=== PATIENT | female | born 1940 | race Caucasian/White ===

== ENCOUNTER 2019-08-15 14:27 | Outpatient (CLI) | payer MEDICARE, SELFPAY ==
--- NOTE | 2019-08-15 14:42 | XRR_ITS ---
PROCEDURE INFORMATION: Exam: XR Right Shoulder Exam date and time: 08/15/2019 2:50 PM Age: 78 years old Clinical indication: Pain; Shoulder; Right; Additional info: Chronic right shoulder pain TECHNIQUE: Imaging protocol: XR Right shoulder. Views: 2 or more views. COMPARISON: No relevant prior studies available. FINDINGS: Bones/joints: Normal. No fracture or dislocation evident. Soft tissues: Normal. XR/XR shoulder RT min 2V* [id number] IMPRESSION: No acute findings.
== END 2019-08-15 14:28 | disposition home or self-care (01) ==
LOC: RAD 14:34
PROVIDERS: PCP Family Medicine; Visit Provider Family Medicine
DX: M25.511 Pain in right shoulder (principal); G89.29 Other chronic pain
CPT/HCPCS: 73030

== ENCOUNTER 2020-06-23 12:54 | Outpatient (CLI) | payer MEDICARE, SELFPAY ==
--- NOTE | 2020-06-23 12:59 | US_ITS ---
WS: [id number] Complete ABDOMINAL ULTRASOUND HISTORY: Abdominal PAIN COMPARISON: 08/04/2011 Liver: 13.8 cm in length. Entire liver is not well seen due to body habitus and attenuation. There do es appear to be mild hepatic steatosis. Gallbladder: Normally distended with no gallstones, wall thickening or pericholecystic fluid. Gallbladder wall thickness: 0.3 cm. Pancreas: Poorly visualized. CBD: 0.3 cm. Right kidney: 8.7 cm x 4.6 cm x 4.1 cm. No mass, cortical thickening or hydronephrosis. Left kidney: 9.6 cm x 3.9 cm x 4.0 cm. No mass, cortical thickening or hydronephrosis. Spleen: Normal size and echogenicity. Abdominal aorta and IVC are within normal limits. No ascites. US/US abdomen complete* [id number] IMPRESSION: 1. Mild limitations due to body habitus. 2. Negative gallbladder. 3. Mild hepatic steatosis.
== END 2020-06-23 12:55 | disposition home or self-care (01) ==
PROVIDERS: PCP Family Medicine; Visit Provider Family Medicine
DX: R10.12 Left upper quadrant pain (principal); K76.0 Fatty (change of) liver, not elsewhere classified
CPT/HCPCS: 76700

== ENCOUNTER 2020-10-14 15:01 | Outpatient (CLI) | payer MEDICARE, SELFPAY ==
--- NOTE | 2020-10-14 15:13 | XRR_ITS ---
PROCEDURE INFORMATION: Exam: XR Right Hip Exam date and time: 10/14/2020 3:13 PM Age: 80 years old Clinical indication: Hip pain; Right hip; Additional info: Acute R hip pain TECHNIQUE: Imaging protocol: XR Right hip. Views: 1 view hip with pelvis when performed. COMPARISON: MRI Lumbar Spine w/o [id number] 01/17/2019 11:15 AM FINDINGS: Bones/joints: Mild degenerative narrowing of both hips. No significant marginal osteophyte formation or subchondral sclerotic/cystic change. No evidence of fracture. Soft tissues: Unremarkable. XR/XR hip RT 2-3V wo/w pel* [id number] IMPRESSION: 1. No acute findings. 2. Mild DJD of the hips.
== END 2020-10-14 15:02 | disposition home or self-care (01) ==
LOC: RAD 15:07
PROVIDERS: PCP Family Medicine; Visit Provider Registered Nurse
DX: M16.0 Bilateral primary osteoarthritis of hip (principal)
CPT/HCPCS: 73502

== ENCOUNTER 2021-10-06 11:26 | Outpatient (CLI) | payer MEDICARE, SELFPAY ==
--- NOTE | 2021-10-06 11:46 | US_ITS ---
WS: [id number] Complete ABDOMINAL ULTRASOUND HISTORY: LUQ ABDOMINAL PAIN COMPARISON: 06/23/2020 Liver: 13.1 cm in length. Normal size liver. 1.2 cm cyst LEFT lobe of the liver. No solid mass or consuelo t dilatation. Portal Vein: Normal hepatopetal flow with monophasic waveform. Gallbladder: Normally distended with no gallstones, wall thickening or pericholecystic fluid. Gallbladder wall thickness: 0.2 cm. Pancreas: Poorly visualized. CBD: 0.3 cm. Right kidney: 10.2 cm x 4.7 cm x 4.0 cm. No mass, cortical thickening or hydronephrosis. Left kidney: 9.7 cm x 5.4 cm x 3.1 cm. No mass, cortical thickening or hydronephrosis. Spleen: Normal size and echogenicity. Abdominal aorta and IVC are within normal limits. No ascites. US/US abdomen complete* [id number] IMPRESSION: 1. Negative gallbladder. 2. No bile duct dilatation. 3. 1.2 cm cyst LEFT lobe of the liver.
== END 2021-10-06 11:27 | disposition home or self-care (01) ==
PROVIDERS: PCP Family Medicine; Visit Provider Internal Medicine Gastroenterology
DX: R10.12 Left upper quadrant pain (principal)
CPT/HCPCS: 76700

== ENCOUNTER 2021-11-01 11:57 | Outpatient (CLI) | payer MEDICARE, SELFPAY ==
--- NOTE | 2021-11-01 12:09 | CTR_ITS ---
PROCEDURE INFORMATION: Exam: CT Abdomen And Pelvis With Contrast Exam date and time: 11/01/2021 2:02 PM Age: 81 years old Clinical indication: Abdominal pain; Localized; Left upper quadrant (luq); Prior surgery; Surgery type: Appy; Patient HX: Epigastric pain to mid abdomen x 6 months; Additional info: Luq abdominal pain TECHNIQUE: Imaging protocol: Computed tomography of the abdomen and pelvis with contrast. Radiation optimization: All CT scans at this facility use at least one of these dose optimization techniques: automated exposure control; mA and/or kV adjustment per patient size (includes targeted exams where dose is matched to clinical indication); or iterative reconstruction. Contrast material: VISIPAQUE; Contrast volume: 95 ml; Contrast route: INTRAVENOUS (IV); COMPARISON: US abdomen complete* [id number] 10/06/2021 12:25 PM RADIATION DOSE METRICS: Total DLP (mGy-cm): 1081.24 FINDINGS: Lungs: Left lower lobe atelectasis versus minimal infiltrate. Liver: Left hepatic lobe sub cm cyst. Gallbladder and bile ducts: Normal. No calcified stones. No ductal dilation. Pancreas: Normal. No ductal dilation. Spleen: Normal. No splenomegaly. Adrenal glands: Normal. No mass. Kidneys and ureters: Normal. No hydronephrosis. Stomach and bowel: Diverticulosis without diverticulitis. Constipation. Appendix: No evidence of appendicitis. Intraperitoneal space: Unremarkable. No free air. No significant fluid collection. Vasculature: Unremarkable. No abdominal aortic aneurysm. Lymph nodes: Unremarkable. No enlarged lymph nodes. Urinary bladder: Unremarkable as visualized. Reproductive: Unremarkable as visualized. Bones/joints: Unremarkable. No acute fracture. Soft tissues: Unremarkable. CT/CT abdomen pelvis w con* [id number] IMPRESSION: 1. Negative for acute inflammatory process in the abdomen or pelvis. 2. Left lower lobe atelectasis versus minimal infiltrate. 3. Diverticulosis without diverticulitis. 4. Constipation. 5. Left hepatic lobe sub cm cyst.
[2021-11-01 13:57] LABS: Blood Urea Nitrogen 15 mg/dL (8-23)
[2021-11-01] MEDS: iodixanol 320 mg/mL 100mL Btl IV (14:06)
[2021-11-01] MEDS: barium sulfate 450 mL Oral Susp PO (14:27)
== END 2021-11-01 11:58 | disposition home or self-care (01) ==
LOC: RAD 11:58
PROVIDERS: PCP Family Medicine; Visit Provider Nurse Practitioner Family
DX: K57.90 Diverticulosis of intestine, part unspecified, without perforation or abscess without bleeding (principal); K59.00 Constipation, unspecified; Q44.6 Cystic disease of liver
CPT/HCPCS: 74177; 82565; 84520

== ENCOUNTER 2022-03-09 08:53 | Outpatient (CLI) | payer MEDICARE, MEDICAID, SELFPAY ==
--- NOTE | 2022-03-09 | MR_ITS ---
WS: [id number] MRI CERVICAL SPINE NONCONTRAST HISTORY: History of fall 3 months ago. RIGHT shoulder and neck pain. COMPARISON: None available. Technique: Multiplanar, multisequence noncontrast imaging of the cervical spine. C5 retrolisthesis by less than 2 mm. Disc spaces are narrowed. Hypertrophic osteophytes throughout th e cervical spine. Disc space narrowing is moderate at C5-6 and mild throughout the remaining cervical spine. No marrow edema or fracture. Signal within the cervical cord is normal. Visualized posterior fossa is unremarkable. Craniocervical junction, C1 and C2 relationship, odontoid process and soft tissues are normal. C2-C3: Normal. C3-C4: Mild disc bulging with a shallow central disc protrusion and facet arthritis. Very mild centra l and foraminal stenosis. C4-C5: Mild osteophytic ridging with moderate bilateral facet joint arthritis. Mild central and aldair inal stenosis. C5-C6: Diffuse osteophytic ridging with annular disc bulging and moderate facet joint arthritis. Ther e is disc and osteophyte contact on the ventral cord. Severe central and bilateral foraminal stenosis . C6-C7: Mild osteophytic ridging. No central disc protrusions. Moderate bilateral facet joint arthriti s. There is very subtle edema within the facets bilaterally at C6-7. There is also some edema and ind istinctness extending through the nerve roots at C6-7 foramina, involving the C7 nerve roots. C7-T1: No stenosis. Paraspinal soft tissue are normal. MR/MR cervical spin wo con* [id number] IMPRESSION: 1. 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 2. Mild edema along the C7 nerve roots and very minimal facet edema at C6-7. M ost consistent with a mild neuritis. 3. Mild central foraminal stenosis at C3-4 and C4-5.
--- NOTE | 2022-03-09 | MR_ITS ---
WS: [id number] MRI RIGHT SHOULDER HISTORY: INJURY TO RT SHOULDER, fall 3 months ago. COMPARISON: Radiograph 08/15/2019 TECHNIQUE: Multiplanar sequences of the shoulder joint are submitted. Study is moderately degraded by motion artifact. Moderate AC joint arthritis. Small osteophytes encroaching upon the supraspinatus. Small amount of fl uid in the subacromial and subdeltoid bursa. No os acromion. Biceps tendon in good position. Moderate narrowing of the glenohumeral joint. Increased signal in the distal supraspinatus tendon wit h fraying along the articular surface. There is a small amount of fluid extending along the tendon sh eath. No definite tendon tears. Mild muscle atrophy may be related to aging. No edema. There is a sma ll amount of increased T2 signal and fluid just inferior to the AC joint abutting the supraspinatus t endon. No labral abnormality identified other than intrasubstance degeneration and aging. MR/MR shoulder RT wo con* [id number] IMPRESSION: 1. Moderate AC joint arthritis. 2. There is a small amount of fluid just deep to the AC joint abutting the sup raspinatus tendon. May be from the recent injury. 3. No full-thickness rotator cuff tear. Fraying along the surfaces of the supr aspinatus tendon. 4. Moderate narrowing of the glenohumeral joint from arthritis. 5. Quality of this examination is compromised by motion.
--- NOTE | 2022-03-09 | MR_ITS ---
WS: [id number] MRI LUMBAR SPINE NONCONTRAST HISTORY: Low back pain after fall several months ago. COMPARISON: MRI 01/17/2019 TECHNIQUE: Sagittal and axial multisequence imaging is submitted. Very minimal anterolisthesis of L4. No fractures or marrow edema. Minimal disc desiccation without loss of height throughout the lumbar spine. Conus terminates normally at L1-2 disc level. L1-L2: Mild ligamentum flavum hypertrophy and facet arthritis. No stenosis. L2-L3: Mild annular disc bulging with ligamentum flavum and facet arthritis. Mild central, bilateral subarticular recess stenosis. L3-L4: Mild annular disc bulging with ligamentum flavum and facet arthritis. Mild to moderate central and bilateral subarticular recess stenosis. L4-L5: Mild annular disc bulging with marked ligamentum flavum and facet arthritis. Moderate to sever e central with bilateral subarticular recess stenosis. Mild encroachment and deformity of the guadalupe ing L5 nerve roots. L5-S1: Mild disc bulging with facet and ligamentum flavum arthritis. Moderate facet joint arthritis. Mild central and subarticular recess encroachment. Paravertebral soft tissues are normal. MR/MR lumbar spine wo con* [id number] IMPRESSION: 1. Moderate to severe central and bilateral subarticular recess stenosis at L4 -5 with encroachment upon the traversing L5 nerve roots. 2. Mild central and subarticular recess stenosis at L2-3 and L5-S1. 3. Mild to moderate central and bilateral subarticular recess stenosis at L3-4 .
== END 2022-03-09 08:54 | disposition home or self-care (01) ==
PROVIDERS: PCP Family Medicine; Visit Provider Family Medicine
DX: M54.41 Lumbago with sciatica, right side (principal); M54.42 Lumbago with sciatica, left side; G89.29 Other chronic pain; S49.91XD Unspecified injury of right shoulder and upper arm, subsequent encounter; S19.9XXD Unspecified injury of neck, subsequent encounter; M13.811 Other specified arthritis, right shoulder; W19.XXXD Unspecified fall, subsequent encounter; M48.061 Spinal stenosis, lumbar region without neurogenic claudication; M48.07 Spinal stenosis, lumbosacral region; M48.02 Spinal stenosis, cervical region; M25.78 Osteophyte, vertebrae
CPT/HCPCS: 72141; 72148; 73221

== ENCOUNTER → 2023-02-21 11:00 | Outpatient (BNVA) | payer MEDICARE, MEDICAID, SELFPAY | PROVIDERS: PCP Family Medicine; Visit Provider Nurse Practitioner Family | DX: L81.4 Other melanin hyperpigmentation (principal); L57.0 Actinic keratosis; L82.0 Inflamed seborrheic keratosis; L82.1 Other seborrheic keratosis; D22.5 Melanocytic nevi of trunk | CPT/HCPCS: 17000; 17110; 99213 ==

== ENCOUNTER → 2024-10-29 13:59 | Outpatient (BNVA) | payer MEDICARE, MEDICAID, SELFPAY | PROVIDERS: PCP Family Medicine; Visit Provider Nurse Practitioner Family | DX: L40.8 Other psoriasis (principal); L81.4 Other melanin hyperpigmentation; L82.0 Inflamed seborrheic keratosis; R20.8 Other disturbances of skin sensation; L53.8 Other specified erythematous conditions; Z78.9 Other specified health status | CPT/HCPCS: 17110; 99214 ==

== ENCOUNTER → 2025-02-03 12:53 | Outpatient (BNVA) | payer MEDICARE, MEDICAID, SELFPAY | PROVIDERS: PCP Family Medicine; Visit Provider Nurse Practitioner Family | DX: L40.8 Other psoriasis (principal); L81.4 Other melanin hyperpigmentation; L57.8 Other skin changes due to chronic exposure to nonionizing radiation; L82.1 Other seborrheic keratosis; D18.01 Hemangioma of skin and subcutaneous tissue; L82.0 Inflamed seborrheic keratosis; L29.89 Other pruritus; L53.8 Other specified erythematous conditions; Z78.9 Other specified health status; R20.8 Other disturbances of skin sensation; L57.0 Actinic keratosis | CPT/HCPCS: 17000; 17110; 99214 ==

== ENCOUNTER 2025-03-26 09:32 | Outpatient (CLI) | payer MEDICARE, SELFPAY ==
--- NOTE | 2025-03-26 09:42 | FL_ITS ---
WS: [id number] Barium swallow and esophagram, 03/26/2025 Clinical Data: DYSPHAGIA Comparison: None. Fluoroscopy time: 1min [id number] # of spot films: 29 Findings: The patient swallowed the thick and thin barium, and it flowed through the hypopharynx without hesitation. No stricture, mass, polyp or erosion was seen. No aspiration or penetration occurred. 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 The barium entered the esophagus and there was normal motility throughout. No hiatal hernia, reflux, stricture, polyp, mass, erosion or ulcer was noted. The barium passed normally into the stomach.. FL/FL barium swallow [id number] Impression: Normal esophagram.
== END 2025-03-26 09:33 | disposition home or self-care (01) ==
PROVIDERS: PCP Family Medicine; Visit Provider Otolaryngology
DX: R13.10 Dysphagia, unspecified (principal); R68.2 Dry mouth, unspecified
CPT/HCPCS: 74220